=== PATIENT | male | born 2000 | race Hispanic/Latino ===

== ENCOUNTER 2022-05-06 00:08 | Emergency (ER) | payer OTHER, SELFPAY ==
[2022-05-06] MEDS ORDERED: EPINEPHrine 1 mg/ml MDV (1ml Charge) ONE (00:18)
[2022-05-06] MEDS ORDERED: methylPREDNISolone Sod Succ/PF 125 MG/2 ML VIAL ONE (00:19)
[2022-05-06] MEDS ORDERED: diphenhydrAMINE 50 MG/ML VIAL ONE (00:19)
[2022-05-06] MEDS ORDERED: Famotidine/PF 20 mg/2ml Vial ONE (00:19)
[2022-05-06] MEDS ORDERED: Albuterol 200 PUFF (6.7GM INHALER) ONE (01:13)
[2022-05-06] MEDS ORDERED: Albuterol Sulfate 1.25 MG/3 ML NEB ONE (01:13)
== END 2022-05-06 04:55 | disposition home or self-care (01) ==
LOC: ERS 00:08
DX: T78.2XXA Anaphylactic shock, unspecified, initial encounter (principal); T63.421A Toxic effect of venom of ants, accidental (unintentional), initial encounter
CPT/HCPCS: 94640; 96372; 96374; 96375; J0171; J1200; J2930; S0028